=== PATIENT | female | born 1945 | race Caucasian/White ===

== ENCOUNTER 2017-06-20 15:47 | Observation (INO) | payer MEDICARE, OTHER ==
[2017-06-20] MEDS ORDERED: Morphine 2 MG/ML Syringe IVPUSH PRN (17:08)
[2017-06-20] MEDS ORDERED: Sodium Chloride 0.9% 10 ML Syringe FLUSH PRN (17:08)
[2017-06-20] MEDS ORDERED: Iopamidol 755 Mg/ML 100 ML Bottle IVPUSH ONE (17:11)
--- NOTE | 2017-06-20 17:26 | PCM.HP ---
H&P History of Present Illness - General Date of Service: 06/20/17 Admit Problem/Dx: Admission Diagnosis/Problem Admission Diagnosis/Problem Tachycardia Source of Information: Patient, Family History Limitations: Reports: No Limitations - History of Present Illness Initial Comments - Free Text/Narative: Patient started with a racing heart this afternoon after bringing laundry up from the basement. States her heart was beating regular but fast, she did not catch a rate. She states having these episodes in the past, maybe one or two times a year but they never would last this long. She had some shortness of breath and slight dizziness. Onset of Symptoms: Reports: Today Improves with: Reports: Rest Associated Symptoms: Reports: Shortness of Breath, Syncope - Related Data Allergies/Adverse Reactions: Allergies Allergy/AdvReac Type Severity Reaction Status Date / Time cat dander Allergy Sneezing Verified 06/20/17 17:05 dog dander Allergy Sneezing Verified 06/20/17 17:05 Past Medical History Respiratory History: Reports: Asthma Oncologic (Cancer) History: Reports: Breast (s/p mastectomy with chemo therapy) - Past Surgical History Female Surgical History: Reports: Mastectomy Social & Family History - Family History Family Medical History: Unobtainable (Patient is adopted) - Tobacco Use Smoking Status *Q: Never Smoker Second Hand Smoke Exposure: No - Caffeine Use Caffeine Use: Reports: Coffee Other Caffeine Use: 2 cups/day - Recreational Drug Use Recreational Drug Use: No H&P Review of Systems - Review of Systems: Review Of Systems: See Below General: Reports: No Symptoms HEENT: Reports: No Symptoms Pulmonary: Reports: Shortness of Breath (shortness of breath with tachycardia) Cardiovascular: Reports: Lightheadedness Gastrointestinal: Reports: No Symptoms Genitourinary: Reports: No Symptoms Musculoskeletal: Reports: No Symptoms Skin: Reports: No Symptoms Psychiatric: Reports: No Symptoms Neurological: Reports: No Symptoms Hematologic/Lymphatic: Reports: No Symptoms Immunologic: Reports: No Symptoms Exam - Exam Exam: See Below - Vital Signs Vital Signs: Last Vital Signs Temp 98.0 F 06/20/17 16:54 Pulse 60 06/20/17 16:54 Resp 12 06/20/17 16:54 BP 129/83 06/20/17 16:54 Pulse Ox 96 06/20/17 16:54 Weight: 112 lb - Exam Quality Assessment: DVT Prophylaxis General: Alert, Oriented, Cooperative HEENT: Conjunctiva Clear, EACs Clear, EOMI, Hearing Intact, Mucosa Moist & [place] , Nares Patent Neck: Supple, Trachea Midline Lungs: Clear to Auscultation, Normal Respiratory Effort Cardiovascular: Regular Rate, Regular Rhythm GI/Abdominal Exam: Normal Bowel Sounds, Soft, Non-Tender, No Organomegaly, No Distention Back Exam: Normal Inspection, Full Range of Motion Extremities: Normal Inspection, Normal Range of Motion, Non-Tender, No Pedal Edema, Normal Capillary Refill Peripheral Pulses: 2+: Dorsalis Pedis (L), Dorsalis Pedis (R) Skin: Warm, Dry, Intact Neurological: Cranial Nerves Intact, Reflexes Equal Bilateral Neuro Extensive - Mental Status: Alert, Oriented x3, Normal Mood/Affect, Normal Cognition, Memory Intact Neuro Extensive - Motor, Sensory, Reflexes: CN II-XII Intact, Normal Gait, Normal Reflexes DTR: 1+: Achilles (L), Achilles (R) Psychiatric: Alert, Normal Affect, Normal Mood *Q Meaningful Use (ADM) - VTE *Q VTE Criteria *Q: - Stroke *Q Stroke Criteria *Q: - AMI *Q AMI Criteria *Q: - Problem List (1) Tachycardia SNOMED Code(s): 7511170 ICD Code: R00.0 - TACHYCARDIA, UNSPECIFIED Status: Acute Current Visit: Yes (2) Chest pain SNOMED Code(s): 52384511 ICD Code: R07.9 - CHEST PAIN, UNSPECIFIED Status: Acute Current Visit: Yes (3) Elevated d-dimer SNOMED Code(s): 672124193 ICD Code: R79.89 - OTHER SPECIFIED ABNORMAL FINDINGS OF BLOOD CHEMISTRY Status: Acute Current Visit: Yes Problem List Initiated/Reviewed/Updated: Yes Orders Last 24hrs: Active Orders 24 hr Category Date Time Status Patient Status [ADT] Routine ADT 06/20/17 17:08 Ordered Antiembolic Devices [RC] PER UNIT ROUTINE Care 06/20/17 17:15 Ordered Cardiac Monitoring [RC] CONTINUOUS Care 06/20/17 17:11 Ordered EKG Documentation Completion [RC] ASDIRECTED Care 06/21/17 07:00 Ordered Intake and Output [RC] QSHIFT Care 06/20/17 17:11 Ordered Oxygen Therapy [RC] PRN Care 06/20/17 17:08 Ordered Peripheral IV Care [RC] . DIRECTED Care 06/20/17 17:17 Ordered Pulse Oximetry [RC] PRN Care 06/20/17 17:11 Ordered Up ad Katerin [RC] ASDIRECTED Care 06/20/17 17:08 Ordered VTE/DVT Education [RC] PER UNIT ROUTINE Care 06/20/17 17:08 Ordered Vital Signs [RC] Q4H Care 06/20/17 17:08 Ordered Regular Diet [DIET] Diet 06/20/17 Dinner Ordered CTA Chest W WO Contrast [Ang Chest] [CT] Stat Exams 06/20/17 16:52 Ordered Chest 2V [CR] Routine Exams 06/20/17 15:45 Taken CBC WITH AUTO DIFF [HEME] AM Lab 06/21/17 05:11 Ordered COMPREHENSIVE METABOLIC PN,CMP [CHEM] AM Lab 06/21/17 05:11 Ordered D-DIMER QUANTITATIVE [COAG] Routine Lab 06/21/17 05:11 Ordered TROPONIN I [CHEM] AM Lab 06/21/17 05:11 Ordered Enoxaparin [Lovenox] Med 06/20/17 20:00 Ordered 30 mg SUBCUT DAILY Morphine Med 06/20/17 17:08 Ordered 2 mg IVPUSH Q2H PRN Sodium Chloride 0.9% [Saline Flush] Med 06/20/17 17:08 Ordered 10 ml FLUSH ASDIRECTED PRN Antiembolic Hose [OM.PC] Per Unit Routine Oth 06/20/17 17:11 Ordered Peripheral IV Insertion Adult [OM.PC] Routine Oth 06/20/17 17:08 Ordered Saline Lock Insert [OM.PC] Routine Oth 06/20/17 17:08 Ordered Resuscitation Status Routine Resus Stat 06/20/17 17:08 Ordered EKG 12 Lead [EK] DAILY Ther 06/21/17 07:00 Ordered Medication Orders Enoxaparin Sodium (Lovenox) 30 mg SUBCUT DAILY EDWIGE Morphine Sulfate (Morphine) 2 mg IVPUSH Q2H PRN PRN Reason: Pain (severe 7-10) Sodium Chloride (Saline Flush) 10 ml FLUSH ASDIRECTED PRN PRN Reason: Keep Vein Open Assessment/Plan Comment:: 06/20/2017 Patient will be admitted to observation with telemetry. Lung CT scan done with a STAT read to rule out PE. Recheck D Dimer in the morning. Repeat serial troponins. Patient is a FULL CODE. Consulted with Dr Fernandez. Venous doppler studies of the LE to be done in the morning. Wait to treat tachycardia as patient presented in NSR at the clinic with a rate of 70bpm. IV saline lock ordered. Aileen Marroquin,[employer]ATOR
[2017-06-20] MEDS ORDERED: Nitroglycerin 0.4 MG Tab.SL SL PRN (17:30)
[2017-06-20] MEDS ORDERED: Aspirin 325 MG Tab PO SCH (18:00)
[2017-06-20] MEDS ORDERED: Enoxaparin 40 MG/0.4 ML Syringe SUBCUT SCH (20:00)
--- NOTE | 2017-06-20 21:27 | PCM.SN ---
- Free Text/Narrative Note: 06/20/17 2030 Sheets Elizabeth MENESES Checked on patient. She is asymptomatic. Nurse reports significant difference in blood pressure between right and left arm. She is s/p mastectomy but no significant lymphedema.
[2017-06-21 07:46] LABS: CHLORIDE,CL 105 mmol/L (98-107); SODIUM,NA 142 mmol/L (136-145)
--- NOTE | 2017-06-21 12:45 | PCM.PN ---
- General Info Date of Service: 06/21/17 Admission Dx/Problem (Free Text): Admission Diagnosis/Problem Admission Diagnosis/Problem Tachycardia Functional Status: Reports: Pain Controlled - Review of Systems General: Reports: No Symptoms HEENT: Reports: No Symptoms Pulmonary: Reports: No Symptoms Cardiovascular: Reports: No Symptoms Gastrointestinal: Reports: No Symptoms Genitourinary: Reports: No Symptoms Musculoskeletal: Reports: No Symptoms Skin: Reports: No Symptoms Neurological: Reports: No Symptoms Psychiatric: Reports: No Symptoms - Patient Data Vitals - Most Recent: Last Vital Signs Temp 97.8 F 06/21/17 12:00 Pulse 56 L 06/21/17 12:00 Resp 14 06/21/17 12:00 BP 128/74 06/21/17 12:00 Pulse Ox 100 06/21/17 12:00 Weight - Most Recent: 112 lb I&O - Last 24 Hours: Intake & Output 06/20/17 06/21/17 06/21/17 22:59 06:59 14:59 Intake Total 1250 300 Output Total 1050 500 700 Balance 200 -500 -400 Lab Results Last 24 Hours: Laboratory Results - last 24 hr 06/21/17 06/21/17 06/21/17 Range/Units 06:58 06:58 06:58 WBC 4.1 (4.0-10.2) K/uL RBC 4.37 (3.77-5.09) M/uL Hgb 13.5 (11.7-15.5) g/dL Hct 39.5 (34.0-46.0) % MCV 90.4 (84.0-98.0) fL MCH 30.9 (28.2-33.3) pg MCHC 34.2 (31.7-36.0) g/dL RDW 12.2 (11.2-14.1) % Plt Count 202 (150-350) K/uL Neut % (Auto) 50.1 (45.0-80.0) % Lymph % (Auto) 38.9 (10.0-50.0) % [place] % (Auto) 6.1 (2.0-14.0) % Eos % (Auto) 4.4 (0.0-5.0) % Baso % (Auto) 0.5 (0.0-2.0) % Neut # (Auto) 2.06 (1.40-7.00) K/uL Lymph # (Auto) 1.60 (0.50-3.50) K/uL [place] # (Auto) 0.25 (0.00-1.00) K/uL Eos # (Auto) 0.18 (0.00-0.50) K/uL Baso # (Auto) 0.02 (0.00-0.20) K/uL D-Dimer, Quantitative 715 H (0-400) ng/mL Sodium 142 (136-145) mmol/L Potassium 3.7 (3.5-5.1) mmol/L Chloride 105 (98-107) mmol/L Carbon Dioxide 25.8 (21.0-32.0) mmol/L BUN 10 (7-18) mg/dL Creatinine 0.59 (0.51-1.17) mg/dL Est Cr Clr Drug Dosing 68.17 mL/min Estimated GFR (MDRD) > 60 mL/min Glucose 104 (74-106) mg/dL Calcium 9.0 (8.5-10.1) mg/dL Magnesium (1.8-2.4) mg/dL Total Bilirubin 0.5 (0.2-1.0) mg/dL AST 23 (15-37) U/L ALT 30 (12-78) U/L Alkaline Phosphatase 65 (46-116) IU/L Troponin I 0.019 (0.000-0.056) ng/mL Total Protein 6.6 (6.4-8.2) g/dL Albumin 3.5 (3.4-5.0) g/dL 06/21/17 Range/Units 07:00 WBC (4.0-10.2) K/uL RBC (3.77-5.09) M/uL Hgb (11.7-15.5) g/dL Hct (34.0-46.0) % MCV (84.0-98.0) fL MCH (28.2-33.3) pg MCHC (31.7-36.0) g/dL RDW (11.2-14.1) % Plt Count (150-350) K/uL Neut % (Auto) (45.0-80.0) % Lymph % (Auto) (10.0-50.0) % [place] % (Auto) (2.0-14.0) % Eos % (Auto) (0.0-5.0) % Baso % (Auto) (0.0-2.0) % Neut # (Auto) (1.40-7.00) K/uL Lymph # (Auto) (0.50-3.50) K/uL [place] # (Auto) (0.00-1.00) K/uL Eos # (Auto) (0.00-0.50) K/uL Baso # (Auto) (0.00-0.20) K/uL D-Dimer, Quantitative (0-400) ng/mL Sodium (136-145) mmol/L Potassium (3.5-5.1) mmol/L Chloride (98-107) mmol/L Carbon Dioxide (21.0-32.0) mmol/L BUN (7-18) mg/dL Creatinine (0.51-1.17) mg/dL Est Cr Clr Drug Dosing mL/min Estimated GFR (MDRD) mL/min Glucose (74-106) mg/dL Calcium (8.5-10.1) mg/dL Magnesium 2.0 (1.8-2.4) mg/dL Total Bilirubin (0.2-1.0) mg/dL AST (15-37) U/L ALT (12-78) U/L Alkaline Phosphatase (46-116) IU/L Troponin I (0.000-0.056) ng/mL Total Protein (6.4-8.2) g/dL Albumin (3.4-5.0) g/dL Med Orders - Current: Current Medications Aspirin (Aspirin) 325 mg PO 1800 [facility] Last Admin: 06/20/17 20:00 Dose: 325 mg Enoxaparin Sodium (Lovenox) 40 mg SUBCUT DAILY@1999 [facility] Last Admin: 06/20/17 19:59 Dose: 40 mg Morphine Sulfate (Morphine) 2 mg IVPUSH Q2H PRN PRN Reason: Pain (severe 7-10) Nitroglycerin (Nitrostat) 0.4 mg SL Q5M PRN PRN Reason: Chest Pain Stop: 06/21/17 17:31 Sodium Chloride (Saline Flush) 10 ml FLUSH ASDIRECTED PRN PRN Reason: Keep Vein Open Discontinued Medications Iopamidol (Isovue-370 (76%)) 100 ml IVPUSH ONETIME ONE Stop: 06/20/17 17:12 Last Admin: 06/20/17 17:36 Dose: 100 ml - Exam Quality Assessment: DVT Prophylaxis General: Alert, Oriented, Cooperative HEENT: Pupils Equal, Pupils Reactive, EOMI, Mucous Membr. Moist/[place] Neck: Supple, Trachea Midline, No JVD Lungs: Clear to Auscultation, Normal Respiratory Effort Cardiovascular: Regular Rate, Regular Rhythm GI/Abdominal Exam: Normal Bowel Sounds, Soft, Non-Tender, No Distention, Pelvis Stable (Female) Exam: Deferred Back Exam: Normal Inspection Extremities: Normal Inspection, Normal Range of Motion, Non-Tender, No Pedal Edema Skin: Warm, Dry, Intact Neurological: No New Focal Deficit Psy/Mental Status: Alert, Normal Affect, Normal Mood - Problem List & Annotations (1) Elevated blood pressure reading SNOMED Code(s): 06433469 Code(s): R03.0 - ELEVATED BLOOD-PRESSURE READING, W/O DIAGNOSIS OF HTN Status: Acute Priority: High Current Visit: Yes (2) Chest pain SNOMED Code(s): 90015488 Code(s): R07.9 - CHEST PAIN, UNSPECIFIED Status: Acute Priority: High Current Visit: Yes Qualifiers: Chest pain type: other chest pain Qualified Code(s): R07.89 - Other chest pain; R07.8 - Other chest pain (3) Elevated d-dimer SNOMED Code(s): 896607616 Code(s): R79.89 - OTHER SPECIFIED ABNORMAL FINDINGS OF BLOOD CHEMISTRY Status: Acute Priority: High Current Visit: Yes (4) Tachycardia SNOMED Code(s): 8132129 Code(s): R00.0 - TACHYCARDIA, UNSPECIFIED Status: Acute Priority: High Current Visit: Yes - Problem List Review Problem List Initiated/Reviewed/Updated: Yes - My Orders Last 24 Hours: My Active Orders 06/21/17 08:00 Echo Comp wo Cont [US] Routine - Plan Plan:: 06/20/2017 Patient will be admitted to observation with telemetry. Lung CT scan done with a STAT read to rule out PE. Recheck D Dimer in the morning. Repeat serial troponins. Patient is a FULL CODE. Consulted with Dr Fernandez. Venous doppler studies of the LE to be done in the morning. Wait to treat tachycardia as patient presented in NSR at the clinic with a rate of 70bpm. IV saline lock ordered. Aileen Marroquin CNP 06/21/17 Rebecca Johnson MD Feels fine. No palpitations. Labs and x-rays reviewed. Stable for discharge home. Echo as outpatient and she agrees.
--- NOTE | 2017-06-21 12:48 | PCM.DCSUM1 ---
Discharge Summary - Discharge Data Discharge Date: 06/21/17 Discharge Disposition: Home, Self-Care 01 Condition: Good - Discharge Diagnosis/Problem(s) (1) Elevated blood pressure reading SNOMED Code(s): 95270153 ICD Code: R03.0 - ELEVATED BLOOD-PRESSURE READING, W/O DIAGNOSIS OF HTN Status: Acute Priority: High Current Visit: Yes (2) Chest pain SNOMED Code(s): 15700029 ICD Code: R07.9 - CHEST PAIN, UNSPECIFIED Status: Acute Priority: High Current Visit: Yes Qualifiers: Chest pain type: other chest pain Qualified Code(s): R07.89 - Other chest pain; R07.8 - Other chest pain (3) Elevated d-dimer SNOMED Code(s): 916990337 ICD Code: R79.89 - OTHER SPECIFIED ABNORMAL FINDINGS OF BLOOD CHEMISTRY Status: Acute Priority: High Current Visit: Yes (4) Tachycardia SNOMED Code(s): 8060030 ICD Code: R00.0 - TACHYCARDIA, UNSPECIFIED Status: Acute Priority: High Current Visit: Yes - Patient Summary/Data Recommended Follow-up Testing/Procedures: Echocardiogram next Tuesday06/28/17 at the [facility]. - Patient Instructions Diet: Regular Diet as Tolerated Activity: As Tolerated, No Strenuous Activities Driving: May Drive Today Showering/Bathing: May Shower - Discharge Plan - Discharge Summary/Plan Comment DC Time >30 min.: No - Patient Data Vitals - Most Recent: Last Vital Signs Temp 97.8 F 06/21/17 12:00 Pulse 56 L 06/21/17 12:00 Resp 14 06/21/17 12:00 BP 128/74 06/21/17 12:00 Pulse Ox 100 06/21/17 12:00 Weight - Most Recent: 112 lb I&O - Last 24 hours: Intake & Output 06/20/17 06/21/17 06/21/17 22:59 06:59 14:59 Intake Total 1250 300 Output Total 1050 500 700 Balance 200 -500 -400 Lab Results - Last 24 hrs: Laboratory Results - last 24 hr 06/21/17 06/21/17 06/21/17 Range/Units 06:58 06:58 06:58 WBC 4.1 (4.0-10.2) K/uL RBC 4.37 (3.77-5.09) M/uL Hgb 13.5 (11.7-15.5) g/dL Hct 39.5 (34.0-46.0) % MCV 90.4 (84.0-98.0) fL MCH 30.9 (28.2-33.3) pg MCHC 34.2 (31.7-36.0) g/dL RDW 12.2 (11.2-14.1) % Plt Count 202 (150-350) K/uL Neut % (Auto) 50.1 (45.0-80.0) % Lymph % (Auto) 38.9 (10.0-50.0) % [place] % (Auto) 6.1 (2.0-14.0) % Eos % (Auto) 4.4 (0.0-5.0) % Baso % (Auto) 0.5 (0.0-2.0) % Neut # (Auto) 2.06 (1.40-7.00) K/uL Lymph # (Auto) 1.60 (0.50-3.50) K/uL [place] # (Auto) 0.25 (0.00-1.00) K/uL Eos # (Auto) 0.18 (0.00-0.50) K/uL Baso # (Auto) 0.02 (0.00-0.20) K/uL D-Dimer, Quantitative 715 H (0-400) ng/mL Sodium 142 (136-145) mmol/L Potassium 3.7 (3.5-5.1) mmol/L Chloride 105 (98-107) mmol/L Carbon Dioxide 25.8 (21.0-32.0) mmol/L BUN 10 (7-18) mg/dL Creatinine 0.59 (0.51-1.17) mg/dL Est Cr Clr Drug Dosing 68.17 mL/min Estimated GFR (MDRD) > 60 mL/min Glucose 104 (74-106) mg/dL Calcium 9.0 (8.5-10.1) mg/dL Magnesium (1.8-2.4) mg/dL Total Bilirubin 0.5 (0.2-1.0) mg/dL AST 23 (15-37) U/L ALT 30 (12-78) U/L Alkaline Phosphatase 65 (46-116) IU/L Troponin I 0.019 (0.000-0.056) ng/mL Total Protein 6.6 (6.4-8.2) g/dL Albumin 3.5 (3.4-5.0) g/dL 06/21/17 Range/Units 07:00 WBC (4.0-10.2) K/uL RBC (3.77-5.09) M/uL Hgb (11.7-15.5) g/dL Hct (34.0-46.0) % MCV (84.0-98.0) fL MCH (28.2-33.3) pg MCHC (31.7-36.0) g/dL RDW (11.2-14.1) % Plt Count (150-350) K/uL Neut % (Auto) (45.0-80.0) % Lymph % (Auto) (10.0-50.0) % [place] % (Auto) (2.0-14.0) % Eos % (Auto) (0.0-5.0) % Baso % (Auto) (0.0-2.0) % Neut # (Auto) (1.40-7.00) K/uL Lymph # (Auto) (0.50-3.50) K/uL [place] # (Auto) (0.00-1.00) K/uL Eos # (Auto) (0.00-0.50) K/uL Baso # (Auto) (0.00-0.20) K/uL D-Dimer, Quantitative (0-400) ng/mL Sodium (136-145) mmol/L Potassium (3.5-5.1) mmol/L Chloride (98-107) mmol/L Carbon Dioxide (21.0-32.0) mmol/L BUN (7-18) mg/dL Creatinine (0.51-1.17) mg/dL Est Cr Clr Drug Dosing mL/min Estimated GFR (MDRD) mL/min Glucose (74-106) mg/dL Calcium (8.5-10.1) mg/dL Magnesium 2.0 (1.8-2.4) mg/dL Total Bilirubin (0.2-1.0) mg/dL AST (15-37) U/L ALT (12-78) U/L Alkaline Phosphatase (46-116) IU/L Troponin I (0.000-0.056) ng/mL Total Protein (6.4-8.2) g/dL Albumin (3.4-5.0) g/dL Med Orders - Current: Current Medications Aspirin (Aspirin) 325 mg PO 1800 [facility] Last Admin: 06/20/17 20:00 Dose: 325 mg Enoxaparin Sodium (Lovenox) 40 mg SUBCUT DAILY@2000 [facility] Last Admin: 06/20/17 19:59 Dose: 40 mg Morphine Sulfate (Morphine) 2 mg IVPUSH Q2H PRN PRN Reason: Pain (severe 7-10) Nitroglycerin (Nitrostat) 0.4 mg SL Q5M PRN PRN Reason: Chest Pain Stop: 06/21/17 17:31 Sodium Chloride (Saline Flush) 10 ml FLUSH ASDIRECTED PRN PRN Reason: Keep Vein Open Discontinued Medications Iopamidol (Isovue-370 (76%)) 100 ml IVPUSH ONETIME ONE Stop: 06/20/17 17:12 Last Admin: 06/20/17 17:36 Dose: 100 ml *Q Meaningful Use (DIS) - VTE *Q VTE Criteria *Q: - Stroke *Q Stroke Criteria *Q: - AMI *Q AMI Criteria *Q:
== END 2017-06-21 15:20 | disposition home or self-care (01) ==
LOC: LL.DI 15:47 → LL.MS 16:32
PROVIDERS: ADMIT Nurse Practitioner Family; ATTEND Family Medicine
DX: R03.0 Elevated blood-pressure reading, without diagnosis of hypertension (principal); R07.89 Other chest pain; R79.89 Other specified abnormal findings of blood chemistry; R00.0 Tachycardia, unspecified; J45.909 Unspecified asthma, uncomplicated; J30.81 Allergic rhinitis due to animal (cat) (dog) hair and dander; Z98.890 Other specified postprocedural states; Z88.0 Allergy status to penicillin; Z91.040 Latex allergy status
CPT/HCPCS: 36415; 71020; 71275; 80053; 83735; 84484; 85025; 85379; 93005; 93970; A9270; J1650; Q9967; 96372; G0378; G0379

== ENCOUNTER 2017-08-28 09:10 | Observation (INO) | payer MEDICARE, OTHER ==
[2017-08-28] MEDS ORDERED: Diltiazem 25 MG/5 ML SDV IVPUSH ONE (09:20)
[2017-08-28] MEDS ORDERED: Sodium Chloride 0.9% 10 ML Syringe FLUSH SCH (09:30)
[2017-08-28 09:57] LABS: CHLORIDE,CL 103 mmol/L (98-107); SODIUM,NA 141 mmol/L (136-145)
--- NOTE | 2017-08-28 10:30 | EDM.PDOC ---
ED HPI GENERAL MEDICAL PROBLEM - General Chief Complaint: Cardiovascular Problem Stated Complaint: Racing Heart Time Seen by Provider: 08/28/17 09:42 Source of Information: Reports: Patient History Limitations: Reports: No Limitations - History of Present Illness INITIAL COMMENTS - FREE TEXT/NARRATIVE: Patient comes to ER with complaint of racing heart. Mild SOB. No chest pain. Denies nausea/sweats. No other complaints. Started approximately 20min prior to arrival to ER. Stopped once patient sat down on ER bed. Shortly thereafter she briefly went back into what appeared to be a narrow complex SVT with rate above 150 that was caught on the monitor. She then went back into NSR with rate in the 50s and has remained in NSR. Denies any significant medical history other than hysterectomy and mastectomy for cancer when in her 40s. No known family history due to being adopted. Was admitted overnight for same complaint two months ago in June. She has already converted to NSR by the time she presented to the ER at that time and remained free of symptoms during observation. She denies any other episodes of irregular heart beat or palpitations. No changes in supplements/food/caffeine mentioned. She is on no prescription medications. - Related Data Allergies Allergy/AdvReac Type Severity Reaction Status Date / Time cat dander Allergy Sneezing Verified 08/28/17 09:24 dog dander Allergy Sneezing Verified 08/28/17 09:24 latex Allergy Itching Verified 08/28/17 09:24 Penicillins Allergy Other Verified 08/28/17 09:24 dust Allergy Itching Uncoded 08/28/17 09:24 Past Medical History HEENT History: Reports: None Respiratory History: Reports: Asthma Genitourinary History: Reports: Other (See Below) EXTERN History: Reports: Other (See Below) Other OB/BYN History: Cervical Cancer Oncologic (Cancer) History: Reports: Breast, Uterine - Past Surgical History HEENT Surgical History: Reports: Tonsillectomy Other HEENT Surgeries/Procedures: 1948 Female Surgical History: Reports: Hysterectomy, Mastectomy, Other (See Below) Other Female Surgeries/Procedures: Double Mastectomy Social & Family History - Family History Family Medical History: Unobtainable - Tobacco Use Smoking Status *Q: Never Smoker Second Hand Smoke Exposure: No - Caffeine Use Caffeine Use: Reports: Coffee Other Caffeine Use: 2 cups/day - Recreational Drug Use Recreational Drug Use: No ED ROS GENERAL - Review of Systems Review Of Systems: See Below Constitutional: Reports: No Symptoms HEENT: Reports: No Symptoms Respiratory: Reports: Shortness of Breath (now resolved), Other (recent URI/ mild cough/mild phlegm, has been improving) Cardiovascular: Reports: Dyspnea on Exertion, Palpitations. Denies: Chest Pain , Edema, Lightheadedness, Orthopnea, PND, Syncope Endocrine: Reports: No Symptoms GI/Abdominal: Reports: No Symptoms : Reports: No Symptoms Musculoskeletal: Reports: No Symptoms Skin: Reports: No Symptoms Neurological: Reports: No Symptoms Psychiatric: Reports: No Symptoms Hematologic/Lymphatic: Reports: No Symptoms ED EXAM, GENERAL - Physical Exam Exam: See Below Exam Limited By: No Limitations General Appearance: Alert, WD/WN, No Apparent Distress Eye Exam: Bilateral Eye: EOMI, Normal Inspection, PERRL Ears: Normal External Exam, Normal Canal, Hearing Grossly Normal, Normal TMs Nose: Normal Inspection Throat/Mouth: Normal Inspection, Normal Lips, Normal Teeth, Normal Gums, Normal Oropharynx, Normal Voice, No Airway Compromise Head: Atraumatic, Normocephalic Neck: Normal Inspection, Supple, Non-Tender, Full Range of Motion. No: Carotid Bruit, Lymphadenopathy (L), Lymphadenopathy (R) Respiratory/Chest: No Respiratory Distress, Lungs Clear, Normal Breath Sounds, No Accessory Muscle Use Cardiovascular: Normal Peripheral Pulses, Regular Rate, Rhythm, No Edema, No JVD , No Murmur Peripheral Pulses: 2+: Radial (L), Radial (R), Dorsalis Pedis (L), Dorsalis Pedis (R) GI/Abdominal: Normal Bowel Sounds, Soft, Non-Tender, No Organomegaly, No Distention, No Abnormal Bruit (Female) Exam: Deferred Rectal (Female) Exam: Deferred Back Exam: Normal Inspection, Full Range of Motion Extremities: Normal Inspection, Normal Range of Motion, Non-Tender, No Pedal Edema, Normal Capillary Refill Neurological: Alert, Oriented, CN II-XII Intact, Normal Cognition, Normal Gait, No Motor/Sensory Deficits Psychiatric: Normal Affect, Normal Mood Skin Exam: Warm, Dry, Intact, Normal Color EKG INTERPRETATION EKG Date: 08/28/17 Time: 09:17 Rhythm: Other (Sinus Bradycardia) Rate (Beats/Min): 55 [place]: Normal P-Wave: Present QRS: Normal ST-T: Normal QT: Normal Comparison: No Change Course - Vital Signs Last Recorded V/S: Last Vital Signs Temp 36.6 C 08/28/17 09:10 Pulse 57 L 08/28/17 09:25 Resp 16 08/28/17 09:25 BP 168/86 H 08/28/17 09:25 Pulse Ox 100 08/28/17 09:25 - Orders/Labs/Meds Orders: Active Orders 24 hr Category Date Time Status Cardiac Monitoring [RC] . DIRECTED Care 08/28/17 09:18 Active EKG Documentation Completion [RC] ASDIRECTED Care 08/28/17 09:19 Active Chest 1V Frontal [CR] Stat Exams 08/28/17 09:20 Taken DD [D-DIMER QUANTITATIVE] [COAG] Stat Lab 08/28/17 09:25 Received Sodium Chloride 0.9% [Saline Flush] Med 08/28/17 09:30 Active 10 ml FLUSH ASDIRECTED Medication Orders Sodium Chloride (Saline Flush) 10 ml FLUSH ASDIRECTED EDWIGE Labs: Laboratory Tests 08/28/17 08/28/17 Range/Units 09:25 09:25 WBC 5.4 (4.0-10.2) K/uL RBC 4.70 (3.77-5.09) M/uL Hgb 14.3 (11.7-15.5) g/dL Hct 42.5 (34.0-46.0) % MCV 90.4 (84.0-98.0) fL MCH 30.4 (28.2-33.3) pg MCHC 33.6 (31.7-36.0) g/dL RDW 12.3 (11.2-14.1) % Plt Count 181 (150-350) K/uL Neut % (Auto) 64.5 (45.0-80.0) % Lymph % (Auto) 23.8 (10.0-50.0) % [place] % (Auto) 7.6 (2.0-14.0) % Eos % (Auto) 3.5 (0.0-5.0) % Baso % (Auto) 0.6 (0.0-2.0) % Neut # (Auto) 3.50 (1.40-7.00) K/uL Lymph # (Auto) 1.29 (0.50-3.50) K/uL [place] # (Auto) 0.41 (0.00-1.00) K/uL Eos # (Auto) 0.19 (0.00-0.50) K/uL Baso # (Auto) 0.03 (0.00-0.20) K/uL Sodium 141 (136-145) mmol/L Potassium 3.8 (3.5-5.1) mmol/L Chloride 103 (98-107) mmol/L Carbon Dioxide 27.5 (21.0-32.0) mmol/L BUN 15 (7-18) mg/dL Creatinine 0.67 (0.51-1.17) mg/dL Est Cr Clr Drug Dosing 59.78 mL/min Estimated GFR (MDRD) > 60 mL/min Glucose 111 H (74-106) mg/dL Calcium 9.4 (8.5-10.1) mg/dL Total Bilirubin 0.5 (0.2-1.0) mg/dL AST 23 (15-37) U/L ALT 31 (12-78) U/L Alkaline Phosphatase 75 (46-116) IU/L Creatine Kinase 136 (26-308) U/L Creatine Kinase Index 2.9 H (0.0-2.5) % CK-MB (CK-2) 3.90 H (0.00-3.60) ng/mL Troponin I 0.007 (0.000-0.056) ng/mL Total Protein 7.2 (6.4-8.2) g/dL Albumin 3.8 (3.4-5.0) g/dL Meds: Medications Generic Name Dose Route Start Last Admin Trade Name Freq PRN Reason Stop Dose Admin Sodium Chloride 10 ml 08/28/17 09:30 Saline Flush FLUSH ASDIRECTED EDWIGE Discontinued Medications Generic Name Dose Route Start Last Admin Trade Name Freq PRN Reason Stop Dose Admin Diltiazem HCl 20 mg 08/28/17 09:20 Diltiazem IVPUSH 08/28/17 09:21 ONETIME ONE - Radiology Interpretation Free Text/Narrative:: No acute changes/pneumo/consolidation noted on chest xray. Compared to previous film from Jun 24 - Re-Assessments/Exams Free Text/Narrative Re-Assessment/Exam: 08/28/17 10:38 Patient remained stable and in sinus rhythm during stay in ER. No complaints. Troponin within normal limits. No acute ST changes on EKG. DDimer elevated but was similarly elevated in June. Patient had normal PE scan at that time. DDimer noted to decrease the next day. No repeat PE scan planned at this time due to previous negative scan and no complaint of SOB. Will continue to monitor DDimer level. CK MB mildly elevated. Will continue to monitor. CBC/Chem unremarkable. Plan at this time is to admit patient on observation for serial cardiac labs and telemetry/monitoring to observe for repeat episodes of SVT. Will contact Cardiology as needed if episodes return for additional planning of continued care. Patient care will be taken over by patient's primary provider, , in the morning. Departure - Departure Time of Disposition: 10:46 Disposition: Refer to Observation Condition: Good Clinical Impression: SVT (supraventricular tachycardia), Elevated d-dimer Referrals: Jenni Correa MD [Primary Care Provider] - - Problem List & Annotations (1) SVT (supraventricular tachycardia) SNOMED Code(s): 6182181 Code(s): I47.1 - SUPRAVENTRICULAR TACHYCARDIA Status: Acute Priority: High Onset Date: 08/28/17 Annotation/Comment:: Second incidence of palpitations for patient since Jun 2017. Appears to be consistent with SVT when caught on ER monitor. Currently asymptomatic. Will observe patient overnight. Telemetry. Serial cardiac labs. Follow up with Cardiology or consult with Cardiology as needed if it recurs. (2) Elevated d-dimer SNOMED Code(s): 456754987 Code(s): R79.89 - OTHER SPECIFIED ABNORMAL FINDINGS OF BLOOD CHEMISTRY Status: Chronic Priority: Medium Annotation/Comment:: Patient noted to have elevated DDImer in June. Improved but still elevated at time of discharge. Similarly is elevated today. Uncertain if it ever returned to normal since last admission. Did have negative PE study of chest in June. Patient denies having any chest pain or shortness of breath. For now will continue to observe. - Problem List Review Problem List Initiated/Reviewed/Updated: Yes - My Orders Last 24 Hours: My Active Orders 08/28/17 09:18 Cardiac Monitoring [RC] . DIRECTED 08/28/17 09:19 EKG Documentation Completion [RC] ASDIRECTED 08/28/17 09:20 Chest 1V Frontal [CR] Stat 08/28/17 09:25 DD [D-DIMER QUANTITATIVE] [COAG] Stat 08/28/17 09:30 Sodium Chloride 0.9% [Saline Flush] 10 ml FLUSH ASDIRECTED - Assessment/Plan Admission H&P: Please use this note as an admission H&P Last 24 Hours: My Active Orders 08/28/17 09:18 Cardiac Monitoring [RC] . DIRECTED 08/28/17 09:19 EKG Documentation Completion [RC] ASDIRECTED 08/28/17 09:20 Chest 1V Frontal [CR] Stat 08/28/17 09:25 DD [D-DIMER QUANTITATIVE] [COAG] Stat 08/28/17 09:30 Sodium Chloride 0.9% [Saline Flush] 10 ml FLUSH ASDIRECTED Assessment:: As above Plan: as above
--- NOTE | 2017-08-29 16:44 | PCM.PN ---
- General Info Date of Service: 08/29/17 Functional Status: Reports: Pain Controlled - Review of Systems General: Reports: No Symptoms HEENT: Reports: No Symptoms Pulmonary: Reports: No Symptoms Cardiovascular: Reports: No Symptoms Gastrointestinal: Reports: No Symptoms Genitourinary: Reports: No Symptoms Musculoskeletal: Reports: No Symptoms Skin: Reports: No Symptoms Neurological: Reports: No Symptoms Psychiatric: Reports: No Symptoms - Patient Data Vitals - Most Recent: Last Vital Signs Temp 98.2 F 08/29/17 12:00 Pulse 61 08/29/17 12:00 Resp 16 08/29/17 12:00 BP 123/69 08/29/17 12:00 Pulse Ox 95 08/29/17 12:00 Weight - Most Recent: 109 lb 12.8 oz I&O - Last 24 Hours: Intake & Output 08/29/17 08/29/17 08/29/17 06:59 14:59 22:59 Intake Total 100 910 Balance 100 910 Lab Results Last 24 Hours: Laboratory Results - last 24 hr 08/28/17 08/29/17 08/29/17 Range/Units 21:00 06:56 06:56 D-Dimer, Quantitative 1640 H (0-400) ng/mL Creatine Kinase 111 89 (26-308) U/L Creatine Kinase Index 2.4 2.4 (0.0-2.5) % CK-MB (CK-2) 2.70 2.10 (0.00-3.60) ng/mL Troponin I 0.012 0.009 (0.000-0.056) ng/mL Med Orders - Current: Current Medications Sodium Chloride (Saline Flush) 10 ml FLUSH ASDIRECTED [facility] Last Admin: 08/28/17 21:33 Dose: 10 ml Discontinued Medications Diltiazem HCl (Diltiazem) 20 mg IVPUSH ONETIME ONE Stop: 08/28/17 09:21 Last Admin: 08/28/17 11:29 Dose: Not Given - Exam General: Alert, Oriented, Cooperative, No Acute Distress HEENT: Mucous Membr. Moist/[place] Neck: Trachea Midline, No JVD Lungs: Clear to Auscultation, Normal Respiratory Effort Cardiovascular: Regular Rate, Regular Rhythm GI/Abdominal Exam: Normal Bowel Sounds, Soft, Non-Tender, No Distention (Female) Exam: Deferred Back Exam: Normal Inspection Extremities: Normal Inspection, Non-Tender, No Pedal Edema Skin: Warm, Dry, Intact Neurological: No New Focal Deficit Psy/Mental Status: Alert, Normal Affect, Normal Mood - Problem List & Annotations (1) Asthma SNOMED Code(s): 092573864 Code(s): J45.909 - UNSPECIFIED ASTHMA, UNCOMPLICATED Status: Acute Priority: Low Current Visit: Yes (2) SVT (supraventricular tachycardia) SNOMED Code(s): 0472169 Code(s): I47.1 - SUPRAVENTRICULAR TACHYCARDIA Status: Acute Priority: High Current Visit: Yes Onset Date: 08/28/17 Annotation/Comment:: Second incidence of palpitations for patient since Jun 2017. Appears to be consistent with SVT when caught on ER monitor. Currently asymptomatic. Will observe patient overnight. Telemetry. Serial cardiac labs. Follow up with Cardiology or consult with Cardiology as needed if it recurs. (3) Elevated d-dimer SNOMED Code(s): 860499336 Code(s): R79.89 - OTHER SPECIFIED ABNORMAL FINDINGS OF BLOOD CHEMISTRY Status: Chronic Priority: Medium Current Visit: Yes Annotation/Comment:: Patient noted to have elevated DDImer in June. Improved but still elevated at time of discharge. Similarly is elevated today. Uncertain if it ever returned to normal since last admission. Did have negative PE study of chest in June. Patient denies having any chest pain or shortness of breath. For now will continue to observe. (4) Elevated blood pressure reading SNOMED Code(s): 96709199 Code(s): R03.0 - ELEVATED BLOOD-PRESSURE READING, W/O DIAGNOSIS OF HTN Status: Acute Priority: High Current Visit: No (5) Tachycardia SNOMED Code(s): 3882277 Code(s): R00.0 - TACHYCARDIA, UNSPECIFIED Status: Acute Priority: High Current Visit: No - Problem List Review Problem List Initiated/Reviewed/Updated: Yes - My Orders Last 24 Hours: My Active Orders 08/29/17 16:30 Discontinue Telemetry Monitoring [Cardiac Monitoring Discontinue] [RC] Click to Edit Peripheral IV Discontinue [OM.PC] Routine 08/29/17 16:40 Ready for Discharge [RC] PER UNIT ROUTINE - Plan Plan:: 08/29/17 Rebecca Johnson MD Feels fine. Discussed SVT. Home today. She has had work-up of echocardiogram, TSH, K+, O2, EKGs. Will schedule outpatient cardiology appointment.
--- NOTE | 2017-08-29 16:49 | PCM.DCSUM1 ---
Discharge Summary - Discharge Data Discharge Date: 08/29/17 Discharge Disposition: Home, Self-Care 01 Condition: Good - Discharge Diagnosis/Problem(s) (1) Asthma SNOMED Code(s): 879187175 ICD Code: J45.909 - UNSPECIFIED ASTHMA, UNCOMPLICATED Status: Acute Priority: Low Current Visit: Yes (2) SVT (supraventricular tachycardia) SNOMED Code(s): 6055027 ICD Code: I47.1 - SUPRAVENTRICULAR TACHYCARDIA Status: Acute Priority: High Current Visit: Yes Onset Date: 08/28/17 Problem Details: Second incidence of palpitations for patient since Jun 2017. Appears to be consistent with SVT when caught on ER monitor. Currently asymptomatic. Will observe patient overnight. Telemetry. Serial cardiac labs. Follow up with Cardiology or consult with Cardiology as needed if it recurs. (3) Elevated d-dimer SNOMED Code(s): 298200848 ICD Code: R79.89 - OTHER SPECIFIED ABNORMAL FINDINGS OF BLOOD CHEMISTRY Status: Chronic Priority: Medium Current Visit: Yes Problem Details: Patient noted to have elevated DDImer in June. Improved but still elevated at time of discharge. Similarly is elevated today. Uncertain if it ever returned to normal since last admission. Did have negative PE study of chest in June. Patient denies having any chest pain or shortness of breath. For now will continue to observe. (4) Elevated blood pressure reading SNOMED Code(s): 75111037 ICD Code: R03.0 - ELEVATED BLOOD-PRESSURE READING, W/O DIAGNOSIS OF HTN Status: Acute Priority: High Current Visit: No (5) Tachycardia SNOMED Code(s): 6261863 ICD Code: R00.0 - TACHYCARDIA, UNSPECIFIED Status: Acute Priority: High Current Visit: No - Patient Instructions Diet: Usual Diet as Tolerated Activity: As Tolerated, Rest and Relax Today Other/Special Instructions: We will schedule you an appointment with [facility]. We will call you with the day and time. Follow up at the hospital or [facility] if you are not feeling well. - Discharge Plan Home Medications: Home Meds Acetaminophen 650 mg PO Q6HR PRN 08/28/17 [History] Methyl Salicylate/Menthol [Muscle Rub] 1 applic TOP Q4HR PRN 08/28/17 [History] Multivitamin [Multivitamins] 1 cap PO DAILY 08/28/17 [History] Patient Handouts: Paroxysmal Supraventricular Tachycardia Forms: ED Department Discharge Referrals: Rebecca-Jenni Johnson MD [Primary Care Provider] - - Discharge Summary/Plan Comment DC Time >30 min.: No Discharge Summary/Plan Comment: 72 year old white female history of palpitations for many years, asthma but requires no routine medications. Came to ER and telemetry monitoring identified atrial tachycardia. Converted with cardiazem. Symptom free and in normal sinus rhythm or bradycardia. She has had echocardiogram, labs, TSH, K+, O2 sats all within normal limits. Will refer to out patient cardiology for consultation. Did discuss vagal manuvers with her. - Patient Data Vitals - Most Recent: Last Vital Signs Temp 98.2 F 08/29/17 12:00 Pulse 61 08/29/17 12:00 Resp 16 08/29/17 12:00 BP 123/69 08/29/17 12:00 Pulse Ox 95 08/29/17 12:00 Weight - Most Recent: 109 lb 12.8 oz I&O - Last 24 hours: Intake & Output 08/29/17 08/29/17 08/29/17 06:59 14:59 22:59 Intake Total 100 910 Balance 100 910 Lab Results - Last 24 hrs: Laboratory Results - last 24 hr 08/28/17 08/29/17 08/29/17 Range/Units 21:00 06:56 06:56 D-Dimer, Quantitative 1640 H (0-400) ng/mL Creatine Kinase 111 89 (26-308) U/L Creatine Kinase Index 2.4 2.4 (0.0-2.5) % CK-MB (CK-2) 2.70 2.10 (0.00-3.60) ng/mL Troponin I 0.012 0.009 (0.000-0.056) ng/mL Med Orders - Current: Current Medications Sodium Chloride (Saline Flush) 10 ml FLUSH ASDIRECTED [facility] Last Admin: 08/28/17 21:33 Dose: 10 ml Discontinued Medications Diltiazem HCl (Diltiazem) 20 mg IVPUSH ONETIME ONE Stop: 08/28/17 09:21 Last Admin: 08/28/17 11:29 Dose: Not Given *Q Meaningful Use (DIS) - VTE *Q VTE Criteria *Q: - Stroke *Q Stroke Criteria *Q: - AMI *Q AMI Criteria *Q:
== END 2017-08-29 17:40 | disposition home or self-care (01) ==
LOC: LL.ED 09:10 → LL.MS 10:39
PROVIDERS: ADMIT Emergency Medicine; ATTEND Family Medicine
DX: I47.1 Supraventricular tachycardia (principal); J45.909 Unspecified asthma, uncomplicated; R79.89 Other specified abnormal findings of blood chemistry; R03.0 Elevated blood-pressure reading, without diagnosis of hypertension; Z79.899 Other long term (current) drug therapy; Z90.710 Acquired absence of both cervix and uterus; Z90.10 Acquired absence of unspecified breast and nipple; Z85.3 Personal history of malignant neoplasm of breast; Z91.09 Other allergy status, other than to drugs and biological substances; Z91.040 Latex allergy status; Z88.0 Allergy status to penicillin; Z85.41 Personal history of malignant neoplasm of cervix uteri; Z90.89 Acquired absence of other organs
CPT/HCPCS: 36415; 71045; 80053; 82550; 82553; 83735; 84484; 85025; 85379; 93005; 99220; 99285; G0378; J7050

== ENCOUNTER 2017-10-21 15:01 | Emergency (ER) | payer MEDICARE, OTHER ==
--- NOTE | 2017-10-21 16:15 | EDM.PDOC ---
ED HPI GENERAL MEDICAL PROBLEM - General Chief Complaint: Cardiovascular Problem Stated Complaint: irregular heart rhythm Time Seen by Provider: 10/21/17 15:10 Source of Information: Reports: Patient, Family History Limitations: Reports: No Limitations - History of Present Illness INITIAL COMMENTS - FREE TEXT/NARRATIVE: Patient is a 72-year-old who is seen today in the ER with chief complaint of rapid heartbeat patient recently admitted to the hospital in [place] with supraventricular tach underwent EP study and ended up with a pacer they placed her on metoprolol succinate 25 mg twice daily and sent home she had been doing good for about 2 weeks and today noticed increase in heart rate and this started about 1448 to arriving to the ER at 1501 was in the ER it was noted that her heart rate was in the 140s to 150s Valsalva maneuver was performed which slowed her down into the 60s and 70s at this time she is in sinus tach on sinus rhythm mostly paced patient never had chest pain .. Onset: Sudden Duration: Minutes:, Improving Location: Reports: Chest Severity: Moderate Improves with: Reports: Other (Warren young) Worsens with: Reports: Movement Associated Symptoms: Reports: No Other Symptoms - Related Data Allergies Allergy/AdvReac Type Severity Reaction Status Date / Time cat dander Allergy Sneezing Verified 10/21/17 15:25 dog dander Allergy Sneezing Verified 10/21/17 15:25 latex Allergy Itching Verified 10/21/17 15:25 Penicillins Allergy Other Verified 10/21/17 15:25 dust Allergy Itching Uncoded 10/21/17 15:25 Home Meds: Home Meds Acetaminophen 650 mg PO Q6HR PRN 08/28/17 [History] Methyl Salicylate/Menthol [Muscle Rub] 1 applic TOP Q4HR PRN 08/28/17 [History] Multivitamin [Multivitamins] 1 cap PO DAILY 08/28/17 [History] Metoprolol Succinate 25 mg PO TID 30 Days #60 tab.er.24h 10/21/17 [Rx] Metoprolol Succinate [Toprol XL] 25 mg PO DAILY 10/21/17 [History] Past Medical History HEENT History: Reports: None Respiratory History: Reports: Asthma Genitourinary History: Reports: Other (See Below) [employer]IV[employer] History: Reports: Other (See Below) Other OB/BYN History: Cervical Cancer Oncologic (Cancer) History: Reports: Breast, Uterine - Past Surgical History HEENT Surgical History: Reports: Tonsillectomy Other HEENT Surgeries/Procedures: 1948 Cardiovascular Surgical History: Reports: Pacer, Other (See Below) Other Cardiovascular Surgeries/Procedures: pacermaker placed 10/07/17 Female Surgical History: Reports: Hysterectomy, Mastectomy, Other (See Below) Other Female Surgeries/Procedures: Double Mastectomy Social & Family History - Family History Family Medical History: Unobtainable - Tobacco Use Smoking Status *Q: Never Smoker Second Hand Smoke Exposure: No - Caffeine Use Caffeine Use: Reports: Coffee Other Caffeine Use: 2 cups/day - Recreational Drug Use Recreational Drug Use: No ED ROS GENERAL - Review of Systems Review Of Systems: See Below Constitutional: Reports: No Symptoms HEENT: Reports: No Symptoms Respiratory: Reports: No Symptoms Cardiovascular: Reports: Palpitations Endocrine: Reports: No Symptoms GI/Abdominal: Reports: No Symptoms : Reports: No Symptoms Musculoskeletal: Reports: No Symptoms ED EXAM, GENERAL - Physical Exam Exam: See Below Exam Limited By: No Limitations General Appearance: Alert, WD/WN, No Apparent Distress Ears: Normal External Exam, Normal Canal, Hearing Grossly Normal, Normal TMs Ear Exam: Bilateral Ear: Auricle Normal, Canal Normal, TM normal Nose: Normal Inspection, Normal Mucosa, No Blood Throat/Mouth: Normal Inspection, Normal Lips, Normal Teeth, Normal Gums, Normal Oropharynx, Normal Voice, No Airway Compromise Head: Atraumatic, Normocephalic Neck: Normal Inspection, Supple, Non-Tender, Full Range of Motion Respiratory/Chest: No Respiratory Distress, Lungs Clear, Normal Breath Sounds, No Accessory Muscle Use, Chest Non-Tender Cardiovascular: Tachycardia, Irregularly Irregular GI/Abdominal: Normal Bowel Sounds, Soft, Non-Tender, No Organomegaly, No Distention, No Abnormal Bruit, No Mass (Female) Exam: Deferred Rectal (Female) Exam: Deferred Back Exam: Normal Inspection, Full Range of Motion, NT Extremities: Normal Inspection, Normal Range of Motion, Non-Tender, Normal Capillary Refill, No Pedal Edema Neurological: Alert, Oriented, CN II-XII Intact, Normal Cognition, Normal Gait, Normal Reflexes, No Motor/Sensory Deficits Psychiatric: Normal Affect, Normal Mood Skin Exam: Warm, Dry, Intact, Normal Color, No Rash Course - Vital Signs Last Recorded V/S: Last Vital Signs Temp 98.1 F 10/21/17 15:01 Pulse 60 10/21/17 16:10 Resp 15 10/21/17 15:37 BP 126/59 L 10/21/17 16:10 Pulse Ox 94 L 10/21/17 16:10 Departure - Departure Time of Disposition: 16:45 Disposition: Home, Self-Care 01 Condition: Good Clinical Impression: SVT (supraventricular tachycardia) Prescriptions: Metoprolol Succinate 25 mg PO TID 30 Days #60 tab.er.24h Instructions: Supraventricular Tachycardia, Adult Referrals: Crissy Kramer PA [Primary Care Provider] - Forms: ED Department Discharge Care Plan Goals: Patient will be sent home on metoprolol sulfonate 2 tablets daily as per Dr. Bettencourt - Problem List & Annotations (1) SVT (supraventricular tachycardia) SNOMED Code(s): 1467097 Code(s): I47.1 - SUPRAVENTRICULAR TACHYCARDIA Status: Acute Priority: High Onset Date: 08/28/17 Annotation/Comment:: Patient has history of supraventricular tach in the past treated and sent home she went to [place] on the last episode had EP studies and a pacer placed patient currently has a pacer and is on metoprolol sulfonate 25 mg today a swallowing maneuver similar to a Valsalva was performed in the ER which controlled her rate she's been controlled for about an hour now pending a call from Dr. Bettencourt. For discharge medications and foam consult - Problem List Review Problem List Initiated/Reviewed/Updated: Yes
== END 2017-10-21 16:47 | disposition home or self-care (01) ==
LOC: LL.ED 15:01
DX: I47.1 Supraventricular tachycardia (principal); J45.909 Unspecified asthma, uncomplicated; Z91.040 Latex allergy status; Z88.0 Allergy status to penicillin; Z79.899 Other long term (current) drug therapy; Z95.0 Presence of cardiac pacemaker; Z91.09 Other allergy status, other than to drugs and biological substances
CPT/HCPCS: 93005; 99285

== ENCOUNTER 2020-10-09 18:33 | Emergency (ER) | payer MEDICARE ==
[2020-10-09] MEDS ORDERED: Famotidine 20 MG/2 ML SDV IVPUSH ONE (18:43)
[2020-10-09] MEDS ORDERED: Ticagrelor 90 MG Tab PO ONE (18:43)
[2020-10-09] MEDS ORDERED: Sodium Chloride 0.9% 10 ML Syringe FLUSH PRN (18:43)
[2020-10-09] MEDS ORDERED: Aspirin 81 MG Tab.Chew CHEW ONE (18:43)
--- NOTE | 2020-10-09 18:43 | EDM.PDOC ---
ED HPI GENERAL MEDICAL PROBLEM - General Chief Complaint: Respiratory Problem Stated Complaint: SOB, HX OF ASTHMA Time Seen by Provider: 10/09/20 18:35 Source of Information: Reports: Patient, Family (), Old Records ([facility] chart/EMR), Other ([place] EMR) - History of Present Illness INITIAL COMMENTS - FREE TEXT/NARRATIVE: The patient was brought to the emergency room via private automobile by her for evaluation of 02/14 retrosternal chest tightness with no radiation and symptoms starting at rest at about 6 PM this evening. The above symptoms were associated with some moderate dyspnea with otherwise stable headache chronic white cough. The patient denies any chest pressure, heart flutter, dizziness, orthostasis, orthopnea, diaphoresis, paresthesias, recent decreased exercise tolerance, or any other anginal-type symptoms, although her overall exercise tolerance recently has been somewhat reduced secondary to her chronic asthma. She did not take any medications for her symptoms to this point. No recent history of abdominal pain, heartburn, nausea, diarrhea, melena, gross hematochezia, or any food intolerance, including fatty foods, etc.. She denies any gross hematuria, colic, or other UTI symptoms. The patient also denies any recent fever, known exposure to infection, etc. with the patient receiving her first COVID-19 immunization about 3 weeks ago. Onset: Today, Gradual Onset Date: 10/09/20 Onset Time: 18:00 Duration: Constant, Getting Worse Location: Reports: Chest. Denies: Head, Face, Neck, Abdomen, Back, Pelvis, Upper Extremity, Left, Upper Extremity, Right, Radiates to Quality: Reports: Other (Tightness) Severity: Moderate Improves with: Reports: None Worsens with: Reports: None Context: Reports: Other (As above). Denies: Sick Contact, Trauma Associated Symptoms: Reports: Chest Pain, Cough, cough w sputum (As above), Shortness of Breath. Denies: Confusion, Diaphoresis, Fever/Chills, Headaches, Loss of Appetite, Malaise, Nausea/Vomiting, Rash, Seizure, Syncope, Weakness Treatments CLAIM TRAINEE: Reports: Other (see below) (None) Middle Chest Pain Score (Numeric/FACES): 7 - Related Data Allergies Allergy/AdvReac Type Severity Reaction Status Date / Time cat dander Allergy Sneezing Verified 10/09/20 18:35 dog dander Allergy Sneezing Verified 10/09/20 18:35 latex Allergy Itching Verified 10/09/20 18:35 dust Allergy Itching Uncoded 10/09/20 18:35 Home Meds: Home Meds Acetaminophen 650 mg PO Q6HR PRN 08/28/17 [History] Multivitamin [Multivitamins] 1 cap PO DAILY 08/28/17 [History] Metoprolol Succinate [Toprol XL] 25 mg PO BID 10/21/17 [History] Fluticasone Propion/Salmeterol [Fluticasone-Salmeterol 100-50] 1 puff INH BID 10/09/20 [History] Fluticasone Propionate [Flovent HFA 110 MCG] 1 puff INH BID 10/09/20 [History] Loratadine [Claritin] 10 mg PO DAILY 10/09/20 [History] Rivastigmine [Exelon] 1 patch TOP DAILY 10/09/20 [History] Ubidecarenone [Coenzyme Q10] 100 mg PO DAILY 10/09/20 [History] Past Medical History HEENT History: Reports: Allergic Rhinitis, Impaired Vision (Patient wears glasses.), Otitis Media. Denies: Cataract, Glaucoma, Hard of Hearing, Macular Degeneration, Retinal Detachment Other HEENT History: Patient wears glasses. Recurrent otitis media in childhood with no PE tubes. Cardiovascular History: Reports: Arrhythmia, Hypertension, Pacemaker, Other (See Below). Denies: Afib, Aneurysm, Blood Clots/VTE/DVT, Bypass, CAD, Heart Failure, Heart Murmur, High Cholesterol, [place], PVD, Syncope Other Cardiovascular History: History of sinus tachycardia and PSVT. Tachycardia-bradycardia syndrome requiring pacemaker therapy as below. D-dimer elevation with negative work-up as below. Respiratory History: Reports: Asthma, Bronchitis, Recurrent, Intubation, Previous. Denies: COPD, Intubation, Difficult, PE, Pneumonia, Recurrent, Pneumothorax, Sleep Apnea, TB Gastrointestinal History: Denies: Celiac Disease, Cholelithiasis, Chronic Constipation, Chronic Diarrhea, Colon Polyp, Gastritis, GERD, Hiatal Hernia, Inflammatory Bowel Disease, Irritable Bowel Syndrome, Jaundice, Pancreatitis, PUD Genitourinary History: Reports: None, Other (See Below). Denies: Acute Renal Failure, Chronic Renal Insuffiency, Renal Calculus, Retention, Urinary, STD, Urinary Incontinence, UTI, Recurrent ASSISTANT PROFESSOR SURGICAL TECHNOLOGY History: Reports: Other (See Below). Denies: Dysfunctional Uterine Bleeding, Endometriosis, Fibroids, , Spontaneous : 0 Other ASSISTANT PROFESSOR SURGICAL TECHNOLOGY History: Breast and cervical cancer as below. Musculoskeletal History: Reports: Arthritis, Back Pain, Chronic, Neck Pain, Chronic, Osteoarthritis, Other (See Below). Denies: Fracture, Gout, Osteoporosis, RA, SLE Other Musculoskeletal History: Scoliosis. L5-S1 retrolisthesis. Neurological History: Reports: Other (See Below). Denies: Cerebral Aneurysms, Concussion, CVA, Headaches, Chronic, Head Trauma, Migraines, MS, Neuropathy, Peripheral, Parkinson's, Seizure, TIA Other Neuro History: Borderline organic brain syndrome? Psychiatric History: Reports: None. Denies: Abuse, Victim of, ADD, ADHD, Addiction, Anxiety, Depression, Psych Hospitalization(s), PTSD, Suicide Attempt, Suicidal Ideation Endocrine/Metabolic History: Reports: Osteopenia, Osteoporosis. Denies: Diabetes, Type I, Diabetes, Type II, Diabetes Mellitus, Type 3c, Hypothyroidism, IDDM, Obesity/BMI 30+ Hematologic History: Reports: None. Denies: Anemia, Blood Transfusion(s), Iron Deficiency Immunologic History: Reports: None. Denies: AIDS, HIV, SLE Oncologic (Cancer) History: Reports: Breast, Uterine, Other (See Below). Denies: Basal Cell Carcinoma, Hodgkin's Lymphoma, Leukemia, Lymphoma, Malignant Melanoma, Metastatic, Non-Hodgkin's Lymphoma, Ovarian, Squamous Cell Carcinoma Other Oncologic History: History of breast cancerside unknown at about age 42 with double mastectomy as below and subsequent chemotherapy. Subsequent cervi kolby cancer with hysterectomy as below at about age 43. Dermatologic History: Reports: None. Denies: Eczema, Psoriasis - Infectious Disease History Infectious Disease History: Reports: Chicken Pox. Denies: C-Difficile, Measles, Meningitis, Mononucleosis, MRSA, Mumps, Novel Coronavirus, Pertussis (Whooping Cough), Rheumatic Fever, Rubella, Scarlet Fever, Shingles, TB, VRE - Past Surgical History Head Surgeries/Procedures: Reports: None HEENT Surgical History: Reports: Adenoidectomy, Oral Surgery, Tonsillectomy. Denies: Cataract Surgery, Eye Surgery, Laser Surgery, LASIK, Myringotomy w Tube(s), Naso-Sinus Surgery Other HEENT Surgeries/Procedures: Tonsillectomy and adenoidectomy in 1948. Marks teeth extraction x4 in her 30s. Additional teeth extractions. Cardiovascular Surgical History: Reports: Pacer, Other (See Below). Denies: Aneurysm, Varicose Other Cardiovascular Surgeries/Procedures: pacermaker placed 10/07/17 Respiratory Surgical History: Reports: None. Denies: Thoracentesis GI Surgical History: Reports: None. Denies: Appendectomy, Cholecystectomy, Colonoscopy, EGD, Hernia, Abdominal, Hernia, Inguinal, Hernia Repair/Other Female Surgical History: Reports: Breast Biopsy, Breast Reconstruction, Hysterectomy, Mastectomy, Salpingo-Oophorectomy, Other (See Below). Denies: Breast Implant, Section, D&C, Tubal Ligation Other Female Surgeries/Procedures: Double Mastectomy at about age 42 with subsequent complete hysterectomy secondary to cervical cancer at about age 43. Endocrine Surgical History: Reports: None. Denies: Thyroid Biopsy Neurological Surgical History: Denies: None, C-Spine, Discectomy, Laminectomy, Lumbar Spine, Sacral Spine, Spinal Fusion, Thoracic Spine, Vertebroplasty Musculoskeletal Surgical History: Reports: None. 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 Dermatological Surgical History: Reports: None - Past Imaging History Past Imaging History: Reports: Cardiac Echo (Normal echocardiogram on 06/28/2017 with ejection fraction of 60-65%.), Carotid US (03/06/2019.), CAT Scan (CT of the chest on 04/28/2020. Negative CTA of the chest on 06/20/2017. CT of the head on 03/06/2019 and 06/21/2018.), DEXA Scan (Positive DEXA scan on 03/04/2020.), MRI (MRI of the lumbar spine in June 2020 with records not available.), PFT (PFTs on 04/04/2020 and 06/20/2017.), Ultrasound (Abdominal aortic ultrasound on 03/07/2019.), Venous Doppler (Negative venous Doppler studies of the legs bilaterally on 06/21/2017.) Social & Family History - Family History Family Medical History: Unobtainable (Patient is adopted) - Tobacco Use Tobacco Use Status *Q: Never Tobacco User Tobacco Use Within Last Twelve Months: No Used Tobacco, but Quit: No Smoking Cessation Information Provided To Patient: No Second Hand Smoke Exposure: No Second Hand Smoke Education Provided: No - Caffeine Use Caffeine Use: Reports: Coffee (1 cup/week), Soda (1 Soda per week), Tea (Very occasional). Denies: Energy Drinks - Alcohol Use Alcohol Use History: No Days Per Week of Alcohol Use: 0 Number of Drinks Per Day: 0 Number of Drinks Per Day Comment: No previous DWIs, problems with alcohol abuse, etc. Total Drinks Per Week: 0 Alcohol Use in Last Twelve Months: No - Recreational Drug Use Recreational Drug Use: No Drug Use in Last 12 Months: No Recreational Drug Type: Denies: Amphetamines (Speed), Cocaine, Dextromethorphan (Cough Syrup), Heroin, Inhalants (Glues, Solvents, Aerosols), LSD (Acid), Marijuana/Hashish, Methamphetamine, Oxycodone - Sexual History Sexual History: Reports: Single Partner - Living Situation & Occupation Living situation: Reports: (1968, 2 adopted children), with Family () Occupation: Retired (Retired RN in 1994.) ED ROS GENERAL - Review of Systems Review Of Systems: Comprehensive ROS is negative, except as noted in HPI. ED EXAM, GENERAL - Physical Exam Exam: See Below Exam Limited By: No Limitations General Appearance: Alert, WD/WN, No Apparent Distress Eye Exam: Bilateral Eye: EOMI, Normal Inspection (The patient is wearing glasses. No vertical nystagmus), PERRL Ears: Normal External Exam, Normal Canal, Hearing Grossly Normal, Normal TMs. No: Hearing Loss Nose: Normal Inspection, Normal Mucosa, No Blood Throat/Mouth: Normal Inspection, Normal Lips, Normal Teeth (Occasional missing teeth), Normal Gums, Normal Oropharynx, Normal Voice, No Airway Compromise. No: Dysphagia, Perioral Cyanosis Head: Atraumatic, Normocephalic. No: Facial Swelling, Facial Tenderness, Sinus Tenderness Neck: Supple, Non-Tender, Full Range of Motion, Carotid Bruit (Mild bilateral carotid bruits). No: Lymphadenopathy (L), Lymphadenopathy (R), Thyromegaly Respiratory/Chest: No Respiratory Distress, No Accessory Muscle Use, Chest Non- Tender, Wheezing (Very occasional bilateral leave it on her list). No: Rales, Rhonchi, Pleural Rub, Retractions Cardiovascular: Normal Peripheral Pulses, Regular Rate, Rhythm, No Edema, No Gallop, No JVD, No Murmur, No Rub. No: Gallop/S3, Gallop/S4, Friction Rub Peripheral Pulses: 1+: Dorsalis Pedis (L), Dorsalis Pedis (R), 2+: Radial (L), Radial (R) GI/Abdominal: Normal Bowel Sounds, Soft, Non-Tender, No Organomegaly, No Distention, No Abnormal Bruit, No Mass, Pelvis Stable. No: Guarding (Female) Exam: Deferred Rectal (Female) Exam: Deferred Back Exam: Full Range of Motion, Other (Mild scoliosis). No: CVA Tenderness (L), CVA Tenderness (R), Muscle Spasm, Paraspinal Tenderness, Vertebral Tenderness Extremities: Normal Inspection, Normal Range of Motion, Non-Tender, No Pedal Edema, Normal Capillary Refill. No: Pierre's Sign Neurological: Alert, Oriented, CN II-XII Intact, Normal Cognition, Normal Gait, Normal Reflexes, No Motor/Sensory Deficits Psychiatric: Normal Affect, Normal Mood Skin Exam: Warm, Dry, Intact, Normal Color, No Rash. No: Diaphoretic, Wound/Incision Lymphatic: No Adenopathy #1 Interpretation EKG Date: 10/09/20 Time: 18:53 Rhythm: Other (100% paced rhythm) Comparison: No Change (Last EKG on 10/21/2017.) EKG Interpretation Comments: 1. No acute ischemic changes 2. 100% paced rhythm Course - Vital Signs Last Recorded V/S: Last Vital Signs Temp 36.4 C 10/09/20 19:55 Pulse 67 10/09/20 19:55 Resp 17 10/09/20 19:55 BP 175/83 H 10/09/20 19:55 Pulse Ox 98 10/09/20 19:55 Vital Signs - 24 hr 10/09/20 10/09/20 10/09/20 18:35 19:00 19:30 Temperature [ 36.6 C Temporal] Pulse, 85 60 62 Peripheral [ Right Pulse Oximetry] Respiratory 24 H 16 15 Rate Blood Pressure 163/70 H 158/83 H 176/82 H [Left Upper Arm ] O2 Sat by Pulse 98 Oximetry 03/04/21 19:55 Temperature [ 36.4 C Temporal] Pulse, 67 Peripheral [ Right Pulse Oximetry] Respiratory 17 Rate Blood Pressure 175/83 H [Left Upper Arm ] O2 Sat by Pulse 98 Oximetry - Orders/Labs/Meds Orders: Active Orders 24 hr Category Date Time Status Chest 1V Frontal [CR] Stat Exams 10/09/20 18:44 Taken Obtain Past Medical Record [OM.PC] Urgent Oth 10/09/20 18:44 Active Peripheral IV Insertion Adult [OM.PC] Stat Oth 10/09/20 18:44 Ordered Resuscitation Status Stat Resus Stat 10/09/20 18:43 Ordered Labs: Laboratory Tests 10/09/20 10/09/20 10/09/20 Range/Units 18:56 18:56 18:56 WBC 5.0 (4.0-10.2) K/uL RBC 4.30 (3.77-5.09) M/uL Hgb 12.9 (11.7-15.5) g/dL Hct 39.2 (34.0-46.0) % MCV 91.2 (84.0-98.0) fL MCH 30.0 (28.2-33.3) pg MCHC 32.9 (31.7-36.0) g/dL RDW 12.0 (11.2-14.1) % Plt Count 200 (150-350) K/uL Neut % (Auto) 47.7 (45.0-80.0) % Lymph % (Auto) 41.9 (10.0-50.0) % [place] % (Auto) 6.6 (2.0-14.0) % Eos % (Auto) 3.4 (0.0-5.0) % Baso % (Auto) 0.4 (0.0-2.0) % Neut # (Auto) 2.38 (1.40-7.00) K/uL Lymph # (Auto) 2.09 (0.50-3.50) K/uL [place] # (Auto) 0.33 (0.00-1.00) K/uL Eos # (Auto) 0.17 (0.00-0.50) K/uL Baso # (Auto) 0.02 (0.00-0.20) K/uL PT 9.6 (9.5-12.0) SEC INR 1.0 APTT 22.7 L (24.5-32.8) SEC D-Dimer, Quantitative (0-400) ng/mL Sodium 139 (136-145) mmol/L Potassium 4.2 (3.5-5.1) mmol/L Chloride 104 (98-107) mmol/L Carbon Dioxide 27.9 (21.0-32.0) mmol/L BUN 20 H (7-18) mg/dL Creatinine 0.82 (0.51-1.17) mg/dL Est Cr Clr Drug Dosing 47.54 mL/min Estimated GFR (MDRD) > 60 mL/min Glucose 105 H (70-99) mg/dL Lactic Acid (0.4-2.0) mmol/L Uric Acid 3.7 (2.6-7.2) mg/dL Calcium 9.2 (8.5-10.1) mg/dL Magnesium 2.3 (1.8-2.4) mg/dL Total Bilirubin 0.4 (0.2-1.0) mg/dL AST 24 (15-37) U/L ALT 27 (12-78) U/L Alkaline Phosphatase 75 (46-116) IU/L Creatine Kinase 104 (26-308) U/L Creatine Kinase Index 1.7 (0.0-2.5) % CK-MB (CK-2) 1.80 (0.00-3.60) ng/mL Troponin I 0.000 (0.000-0.056) ng/mL NT-Pro-B Natriuret Pep 85 (0-125) pg/mL Total Protein 7.3 (6.4-8.2) g/dL Albumin 3.7 (3.4-5.0) g/dL TSH, Ultra Sensitive 4.280 H (0.358-3.740) mIU/mL SARS-CoV-2 Ag (Rapid) Cancelled 10/09/20 10/09/20 10/09/20 Range/Units 18:56 18:56 19:25 WBC (4.0-10.2) K/uL RBC (3.77-5.09) M/uL Hgb (11.7-15.5) g/dL Hct (34.0-46.0) % MCV (84.0-98.0) fL MCH (28.2-33.3) pg MCHC (31.7-36.0) g/dL RDW (11.2-14.1) % Plt Count (150-350) K/uL Neut % (Auto) (45.0-80.0) % Lymph % (Auto) (10.0-50.0) % [place] % (Auto) (2.0-14.0) % Eos % (Auto) (0.0-5.0) % Baso % (Auto) (0.0-2.0) % Neut # (Auto) (1.40-7.00) K/uL Lymph # (Auto) (0.50-3.50) K/uL [place] # (Auto) (0.00-1.00) K/uL Eos # (Auto) (0.00-0.50) K/uL Baso # (Auto) (0.00-0.20) K/uL PT (9.5-12.0) SEC INR APTT (24.5-32.8) SEC D-Dimer, Quantitative 1130 H (0-400) ng/mL Sodium (136-145) mmol/L Potassium (3.5-5.1) mmol/L Chloride (98-107) mmol/L Carbon Dioxide (21.0-32.0) mmol/L BUN (7-18) mg/dL Creatinine (0.51-1.17) mg/dL Est Cr Clr Drug Dosing mL/min Estimated GFR (MDRD) mL/min Glucose (70-99) mg/dL Lactic Acid 0.1 L (0.4-2.0) mmol/L Uric Acid (2.6-7.2) mg/dL Calcium (8.5-10.1) mg/dL Magnesium (1.8-2.4) mg/dL Total Bilirubin (0.2-1.0) mg/dL AST (15-37) U/L ALT (12-78) U/L Alkaline Phosphatase (46-116) IU/L Creatine Kinase (26-308) U/L Creatine Kinase Index (0.0-2.5) % CK-MB (CK-2) (0.00-3.60) ng/mL Troponin I (0.000-0.056) ng/mL NT-Pro-B Natriuret Pep (0-125) pg/mL Total Protein (6.4-8.2) g/dL Albumin (3.4-5.0) g/dL TSH, Ultra Sensitive (0.358-3.740) mIU/mL SARS-CoV-2 Ag (Rapid) Negative Meds: Medications Discontinued Medications Generic Name Dose Route Start Last Admin Trade Name Ronny PRN Reason Stop Dose Admin Aspirin 324 mg 10/09/20 18:43 10/09/20 19:05 Aspirin CHEW 10/09/20 18:44 324 mg ONETIME ONE Administration Famotidine 40 mg 10/09/20 18:43 10/09/20 19:04 Pepcid IVPUSH 10/09/20 18:44 40 mg ONETIME ONE Administration Sodium Chloride 10 ml 10/09/20 18:43 Saline Flush FLUSH ASDIRECTED PRN Keep Vein Open Ticagrelor 180 mg 10/09/20 18:43 10/09/20 19:05 Brilinta PO 10/09/20 18:44 180 mg ONETIME ONE Administration - Radiology Interpretation Free Text/Narrative:: 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 Chest x-ray, portable, shows mild to moderate pulmonary obstructive disease with no cardiomegaly, pulmonary infiltrates, CHF, pneumothorax, etc. Left-sided pacemaker noted. Departure - Departure Time of Disposition: 20:10 Disposition: Home, Self-Care 01 Condition: Good Clinical Impression: D-dimer, elevated Asthma Qualifiers: Asthma severity: mild Asthma persistence: intermittent Asthma complication type: uncomplicated Qualified Code(s): J45.20 - Mild intermittent asthma, uncomplicated Hypertension Qualifiers: Hypertension type: essential hypertension Qualified Code(s): I10 - Essential (primary) hypertension Osteoarthritis Qualifiers: Osteoarthritis location: multiple joints Osteoarthritis type: primary Qualified Code(s): M89.49 - Other hypertrophic osteoarthropathy, multiple sites - Discharge Information *PRESCRIPTION DRUG MONITORING PROGRAM REVIEWED*: Not Applicable *COPY OF PRESCRIPTION DRUG MONITORING REPORT IN PATIENT RUFINO: Not Applicable Referrals: PCP,Unknown [Primary Care Provider] - Forms: ED Department Discharge Additional Instructions: 1. Follow up with your regular provider in 10-14 days as needed, if symptoms persist. Bring these discharge instructions with you to that visit. 2. Compliance with inhalers as discussed with evening blood pressures and inhaler to use TORO upon return to home this evening 3. Continue to observe your blood pressures closely through your regular provider. 4. Iimmediately after this visit verify that your cellular telephone's voicemail has been activated and is empty. Also verify that your home telephone's answering machine is operating properly and has space to receive messages. Note that it is sometimes necessary for us to be able to contact you at a later date to discuss your medical care. 5. Please remember that we are ALWAYS here for you and want to answer any questions you may have. Feel free to call the hospital any time and we call you back TORO. 6. Discuss with your regular provider possibility of a prescription for a rescue inhaler. Sepsis Event Note (ED) - Evaluation Sepsis Screening Result: No Definite Risk - Focused Exam Vital Signs: Vital Signs Temp Pulse Resp BP Pulse Ox 10/09/20 19:55 36.4 C 67 17 175/83 H 98 10/09/20 19:30 62 15 176/82 H 10/09/20 19:00 60 16 158/83 H 10/09/20 18:35 36.6 C 85 24 H 163/70 H 98 - Problem List & Annotations (1) Asthma SNOMED Code(s): 464204478 Code(s): J45.909 - UNSPECIFIED ASTHMA, UNCOMPLICATED Status: Acute Priority: High Annotation/Comment:: Note that cardiac asthma initially suspected however negative work-up as above. Patient has been noncompliant with her inhalers. Medication compliance was extensively discussed. She will initiate this therapy immediately upon arrival back to home after discharge from this facility. No evidence of infection at this time. No IM Depo-Medrol was given secondary to upcoming second COVID-19 immunization next week. Close follow-up by regular provider depending on her clinical course. She does not have a rescue inhaler with this to be discussed further with her regular provider. Qualifiers: Asthma severity: mild Asthma persistence: intermittent Asthma complication type: uncomplicated Qualified Code(s): J45.20 - Mild intermittent asthma, uncomplicated (2) Elevated d-dimer SNOMED Code(s): 224082609 Code(s): R79.89 - OTHER SPECIFIED ABNORMAL FINDINGS OF BLOOD CHEMISTRY Status: Chronic Priority: Medium Annotation/Comment:: Previous history of elevated D-dimers with negative work-up in the past as above. No clinical evidence of DVT or PE. Per medical records her D-dimers have been much more elevated in the past. No further work-up at this time. (3) Hypertension SNOMED Code(s): 88821685 Code(s): I10 - ESSENTIAL (PRIMARY) HYPERTENSION Status: Chronic Priority: Medium Annotation/Comment:: Blood pressure somewhat elevated in the emergency room. Note that she has not taken her evening medications to this point. These will be taken TORO upon return to home as above. In addition, mild TSH elevation without thyroid type symptoms. Consider repeat TSH in the next 4 weeks. Continue to observe closely by her regular provider. Qualifiers: Hypertension type: essential hypertension Qualified Code(s): I10 - Essential (primary) hypertension (4) Osteoarthritis SNOMED Code(s): 770129100 Code(s): M19.90 - UNSPECIFIED OSTEOARTHRITIS, UNSPECIFIED SITE Status: Chronic Priority: Medium Annotation/Comment:: Stable by history. Qualifiers: Osteoarthritis location: multiple joints Osteoarthritis type: primary Qu alified Code(s): M89.49 - Other hypertrophic osteoarthropathy, multiple sites - Problem List Review Problem List Initiated/Reviewed/Updated: Yes - My Orders Last 24 Hours: My Active Orders 10/09/20 18:43 Resuscitation Status Stat 10/09/20 18:44 Chest 1V Frontal [CR] Stat Obtain Past Medical Record [OM.PC] Urgent Peripheral IV Insertion Adult [OM.PC] Stat - Assessment/Plan Last 24 Hours: My Active Orders 10/09/20 18:43 Resuscitation Status Stat 10/09/20 18:44 Chest 1V Frontal [CR] Stat Obtain Past Medical Record [OM.PC] Urgent Peripheral IV Insertion Adult [OM.PC] Stat Assessment:: As above Plan: As above. Extensive precautions were given to the patient and her , who are in agreement with the treatment plan. See Patient Instructions for further treatment and plan.
[2020-10-09 19:22] LABS: PTT,PARTIAL THROMBOPLSTIN TIME 22.7 SEC (24.5-32.8)
[2020-10-09 19:35] LABS: CHLORIDE,CL 104 mmol/L (98-107); SODIUM,NA 139 mmol/L (136-145)
== END 2020-10-09 20:10 | disposition home or self-care (01) ==
LOC: LL.ED 18:33
DX: J45.20 Mild intermittent asthma, uncomplicated (principal); I10 Essential (primary) hypertension; R79.1 Abnormal coagulation profile; M89.49 Other hypertrophic osteoarthropathy, multiple sites; Z91.048 Other nonmedicinal substance allergy status; Z91.040 Latex allergy status; Z79.899 Other long term (current) drug therapy
CPT/HCPCS: 36415; 71045; 80053; 82550; 82553; 83605; 83735; 83880; 84443; 84484; 84550; 85025; 85379; 85610; 85730; 87426; 93005; 96374; 99285; A9270; J3490; 93010; 99284

== ENCOUNTER 2021-08-16 08:20 | Emergency (ER) | payer MEDICARE ==
--- NOTE | 2021-08-16 08:26 | EDM.PDOC ---
<Charla Ramirez - Last Filed: 08/16/21 08:34> ED HPI GENERAL MEDICAL PROBLEM - General Chief Complaint: General Stated Complaint: head/neck/lower back pain Time Seen by Provider: 08/16/21 08:23 Source of Information: Reports: Patient - History of Present Illness INITIAL COMMENTS - FREE TEXT/NARRATIVE: Steph is a 76 y/o female who comes to the ER this AM with lower back pain. She reports that she has had the pain "2-3 weeks, maybe longer". This AM she could hardly move due to the pain. The pain is worse in her lower back and she gets"shooting" pains when she moves. She also reports that the pain goes up into her neck region. No fevers. Denies any injuries. Has not taken any OTC meds. She denies having a local PCP and has not been seen for the condition to date. - Related Data Allergies Allergy/AdvReac Type Severity Reaction Status Date / Time cat dander Allergy Sneezing Verified 08/16/21 08:22 dog dander Allergy Sneezing Verified 08/16/21 08:22 latex Allergy Itching Verified 08/16/21 08:22 dust Allergy Itching Uncoded 08/16/21 08:22 Home Meds: Home Meds Acetaminophen 650 mg PO Q6HR PRN 08/28/17 [History] Rivastigmine [Exelon] 1 patch TOP DAILY 10/09/20 [History] Albuterol Sulfate [Albuterol Sulfate Hfa] 2 puff PO Q4HR PRN 08/16/21 [History] Fluticasone Propionate [Flonase Allergy Relief] 2 spray NASBOTH BID 08/16/21 [History] Past Medical History HEENT History: Reports: Allergic Rhinitis, Impaired Vision, Otitis Media Other HEENT History: Patient wears glasses. Recurrent otitis media in childhood with no PE tubes. Cardiovascular History: Reports: Arrhythmia, Hypertension, Pacemaker, Other (See Below) Other Cardiovascular History: History of sinus tachycardia and PSVT. Tachycardia-bradycardia syndrome requiring pacemaker therapy as below. D-dimer elevation with negative work-up as below. Respiratory History: Reports: Asthma, Bronchitis, Recurrent, Intubation, Previous Genitourinary History: Reports: None, Other (See Below) HAND FORMER HELPER History: Reports: Other (See Below) Other HAND FORMER HELPER History: Breast and cervical cancer as below. Musculoskeletal History: Reports: Arthritis, Back Pain, Chronic, Neck Pain, Chronic, Osteoarthritis, Other (See Below) Other Musculoskeletal History: Scoliosis. L5-S1 retrolisthesis. Neurological History: Reports: Other (See Below) Other Neuro History: Borderline organic brain syndrome? Psychiatric History: Reports: None Endocrine/Metabolic History: Reports: Osteopenia, Osteoporosis Hematologic History: Reports: None Immunologic History: Reports: None Oncologic (Cancer) History: Reports: Breast, Uterine, Other (See Below) Other Oncologic History: History of breast cancerside unknown at about age 42 with double mastectomy as below and subsequent chemotherapy. Subsequent cervical cancer with hysterectomy as below at about age 43. Dermatologic History: Reports: None - Infectious Disease History Infectious Disease History: Reports: Chicken Pox - Past Surgical History Head Surgeries/Procedures: Reports: None HEENT Surgical History: Reports: Adenoidectomy, Oral Surgery, Tonsillectomy Other HEENT Surgeries/Procedures: Tonsillectomy and adenoidectomy in 1948. [place] teeth extraction x4 in her 30s. Additional teeth extractions. Cardiovascular Surgical History: Reports: Pacer, Other (See Below) Other Cardiovascular Surgeries/Procedures: pacermaker placed 10/07/17 Respiratory Surgical History: Reports: None GI Surgical History: Reports: None Female Surgical History: Reports: Breast Biopsy, Breast Reconstruction, Hysterectomy, Mastectomy, Salpingo-Oophorectomy, Other (See Below) Other Female Surgeries/Procedures: Double Mastectomy at about age 42 with subsequent complete hysterectomy secondary to cervical cancer at about age 43. Endocrine Surgical History: Reports: None Musculoskeletal Surgical History: Reports: None Oncologic Surgical History: Reports: Biopsy of Breast, Mastectomy, Other (See Below) Other Oncologic Surgeries/Procedures: P[employer] surgeries secondary to cancers as above. Dermatological Surgical History: Reports: None - Past Imaging History Past Imaging History: Reports: Cardiac Echo (Normal echocardiogram on 06/28/2017 with ejection fraction of 60-65%.), Carotid US (03/06/2019.), CAT Scan (CT of the chest on 04/28/2020. Negative CTA of the chest on 06/20/2017. CT of the head on 03/06/2019 and 06/21/2018.), DEXA Scan (Positive DEXA scan on 03/04/2020 .), MRI (MRI of the lumbar spine in June 2020 with records not available.), PFT (PFTs on 04/04/2020 and 06/20/2017.), Ultrasound (Abdominal aortic ultrasound on 03/07/2019.), Venous Doppler (Negative venous Doppler studies of the legs bilaterally on 06/21/2017.) Social & Family History - Family History Family Medical History: Unobtainable - Caffeine Use Caffeine Use: Reports: Coffee (1 cup/week), Soda (1 Soda per week), Tea (Very occasional). Denies: Energy Drinks Other Caffeine Use: 2 cups/day - Living Situation & Occupation Living situation: Reports: (1968, 2 adopted children), with Family () Occupation: Retired (Retired RN in 1994.) ED ROS GENERAL - Review of Systems Review Of Systems: See Below Constitutional: Reports: No Symptoms HEENT: Reports: No Symptoms Respiratory: Reports: No Symptoms Cardiovascular: Reports: No Symptoms Endocrine: Reports: No Symptoms GI/Abdominal: Reports: No Symptoms : Reports: No Symptoms Musculoskeletal: Reports: Neck Pain, Back Pain Skin: Reports: No Symptoms Neurological: Reports: No Symptoms Psychiatric: Reports: No Symptoms Hematologic/Lymphatic: Reports: No Symptoms Immunologic: Reports: No Symptoms ED EXAM, GENERAL - Physical Exam Exam: See Below General Appearance: Alert, WD/WN, No Apparent Distress (Elderly female, she is lying on maria eugenia ER cart and cannot move much due to the pain.) Eye Exam: Bilateral Eye: PERRL Ears: Normal External Exam, Hearing Grossly Normal Nose: Normal Inspection, Normal Mucosa Throat/Mouth: Normal Inspection, Normal Lips, Normal Voice Head: Atraumatic, Normocephalic Neck: Normal Inspection, Supple, Tender Midline (with palpation ) Respiratory/Chest: No Respiratory Distress, Lungs Clear, Chest Non-Tender Cardiovascular: Normal Peripheral Pulses, Regular Rate, Rhythm, No Murmur GI/Abdominal: Normal Bowel Sounds, Soft, Non-Tender (Female) Exam: Deferred Rectal (Female) Exam: Deferred Back Exam: Normal Inspection, Other (There is tenderness to palpation in the paraspinous muscles of the lower lumbar region. There is some tenderness over the thoracic spine region, no tenderderness over sacro-iliac joint or sciatic notch. Has a hard time rolling over for exam. Strength, sensation, and reflexes are intact.) Neurological: Alert, Oriented, CN II-XII Intact, Normal Cognition, No Motor/Sensory Deficits Psychiatric: Normal Affect, Normal Mood Skin Exam: Warm, Dry, Intact, Normal Color Course - Vital Signs Text/Narrative:: 0815 The patient was seen by the [facility]. She was given Toradol 30mg IM and Valium 5mg po for the pain. Xrays ordered since she has not had any imaging done to date. Consider Compression Fx, Degenerative Joint Disease, Sciatica, Muscle Spasm as differentials. 09 Report given to Audie Hudson PAC at shift change. Departure - Departure Disposition: Home, Self-Care 01 Clinical Impression: Tension headache, Osteoarthritis of spine at multiple levels - Discharge Information Instructions: Osteoarthritis, Tension Headache, Adult, [place]-xi-Epyl Forms: ED Department Discharge Additional Instructions: Home to rest. Establish care with Dr. Walton. Tylenol and ibuprofen as needed for discomfort continued discomfort. <Audie Hudson W - Last Filed: 08/16/21 10:57> Course - Vital Signs Last Recorded V/S: Last Vital Signs Temp 35.8 C L 08/16/21 08:25 Pulse 60 08/16/21 08:25 Resp 16 08/16/21 08:25 BP 132/65 08/16/21 08:25 Pulse Ox 100 08/16/21 08:25 - Orders/Labs/Meds Orders: Active Orders 24 hr Category Date Time Status Cervical Spine 2V or 3V [CR] Stat Exams 08/16/21 08:33 Ordered Head wo Cont [CT] Stat Exams 08/16/21 09:02 Taken Lumbar Spine 2 or 3V [CR] Stat Exams 08/16/21 08:33 Taken Thoracic Spine 3V [CR] Stat Exams 08/16/21 08:33 Ordered Meds: Medications Discontinued Medications Generic Name Dose Route Start Last Admin Trade Name Tripq PRN Reason Stop Dose Admin Diazepam 5 mg 08/16/21 08:24 08/16/21 08:28 Diazepam 5 Mg Tab PO 08/16/21 08:25 5 mg ONETIME ONE Administration Ketorolac Tromethamine 30 mg 08/16/21 08:24 08/16/21 08:27 Ketorolac 30 Mg/Ml Sdv IM 08/16/21 08:25 30 mg ONETIME ONE Administration - Radiology Interpretation Free Text/Narrative:: CT brain without contrast did not reveal any acute pathology cervical, thoracic and lumbar plain film radiographs obtained. No acute pathology noted. Significant multilevel degenerative change noted throughout spine. No acute fracture or subluxation noted. - Re-Assessments/Exams Free Text/Narrative Re-Assessment/Exam: Pt. was given IM toradol and PO valium. Please refer to Charla Ramirez NP note regarding this. Pt. reported significant improvement in discomfort. Departure - Departure Time of Disposition: 10:53 Sepsis Event Note (ED) - Focused Exam Vital Signs: Vital Signs Temp Pulse Resp BP Pulse Ox 08/16/21 08:25 35.8 C L 60 16 132/65 100 - Problem List Review Problem List Initiated/Reviewed/Updated: Yes - My Orders Last 24 Hours: My Active Orders 08/16/21 09:02 Head wo Cont [CT] Stat - Assessment/Plan Last 24 Hours: My Active Orders 08/16/21 09:02 Head wo Cont [CT] Stat Plan: Pt. was discharged. She reported feeling much better after receiving the toradol and diazepam. In reviewing her chart, it appears that she has had problems with back and neck pain in the past. She has also been seen for tension headache in the past as well. She does not have a PCP and needs to find a provider locally. Discussed this at length with patient and her . She can use ibuprofen and tylenol intermittently for continued discomfort.
[2021-08-16] MEDS: Ketorolac 30 MG/ML SDV IM ONE (08:27)
[2021-08-16] MEDS: Diazepam 5 MG Tab PO ONE (08:28)
== END 2021-08-16 11:00 | disposition home or self-care (01) ==
LOC: LL.ED 08:20
DX: M47.816 Spondylosis without myelopathy or radiculopathy, lumbar region (principal); G44.209 Tension-type headache, unspecified, not intractable; I10 Essential (primary) hypertension; Z95.0 Presence of cardiac pacemaker; Z91.040 Latex allergy status; Z91.09 Other allergy status, other than to drugs and biological substances; Z91.048 Other nonmedicinal substance allergy status
CPT/HCPCS: 70450; 72040; 72072; 72100; 96372; 99284; 99284-25; A9270-GY; J1885

== ENCOUNTER 2021-09-30 14:33 | Emergency (ER) | payer MEDICARE ==
[2021-09-30] MEDS ORDERED: Sodium Chloride 0.9% 10 ML Syringe FLUSH PRN (15:00)
[2021-09-30 15:58] LABS: ANION GAP 9.3 meq/L (7-15); CHLORIDE,CL 104 mmol/L (98-107); SODIUM,NA 140 mmol/L (136-145)
[2021-09-30] MEDS: Iopamidol 755 Mg/ML 100 ML Bottle IVPUSH ONE (16:52)
== END 2021-09-30 18:18 | disposition home or self-care (01) ==
LOC: LL.ED 14:33
DX: R55 Syncope and collapse (principal); Z91.040 Latex allergy status; Z91.09 Other allergy status, other than to drugs and biological substances; Z79.899 Other long term (current) drug therapy
CPT/HCPCS: 36415; 70450; 70496; 70498; 80053; 84484; 85025; 99284; 99284-25; Q9967

== ENCOUNTER 2022-01-01 21:37 | Emergency (ER) | payer MEDICARE ==
[2022-01-01] MEDS ORDERED: Albuterol/Ipratropium 3.0-0.5 MG/3 ML Neb Soln ONE ×2 (21:40→21:45)
[2022-01-01] MEDS ORDERED: predniSONE 20 MG Tab ONE (21:45)
[2022-01-01] MEDS ORDERED: Sodium Chloride 0.9% 10 ML Syringe FLUSH PRN (21:46)
[2022-01-01] MEDS ORDERED: Albuterol/Ipratropium 3.0-0.5 MG/3 ML Neb Soln NEB ONE (21:47)
[2022-01-01 22:32] LABS: ANION GAP 8.6 meq/L (7-15); CHLORIDE,CL 107 mmol/L (98-107); SODIUM,NA 141 mmol/L (136-145)
[2022-01-01] MEDS ORDERED: predniSONE 20 MG Tab PO ONE (22:40)
[2022-01-01 22:49] LABS: CORONAVIRUS COVID-19 NAA NEGATIVE (NEGATIVE); RESPIRATORY SYNCYTIAL VIR NAA NEGATIVE (NEGATIVE)
== END 2022-01-01 23:14 | disposition home or self-care (01) ==
LOC: LL.ED 21:37
DX: J45.21 Mild intermittent asthma with (acute) exacerbation (principal); I10 Essential (primary) hypertension; Z95.0 Presence of cardiac pacemaker; Z91.040 Latex allergy status; Z91.048 Other nonmedicinal substance allergy status; Z91.09 Other allergy status, other than to drugs and biological substances; Z20.822 Contact with and (suspected) exposure to COVID-19
CPT/HCPCS: 0241U; 36415; 71046; 80053; 83735; 84484; 85025; 85379; 93005; 93010; 99284; 99285; J7512; J7620-GY